=== PATIENT | female | born 1995 | race Two or more races ===

== ENCOUNTER → 2018-06-20 | Outpatient (CLI) | payer OTHER ==
--- NOTE | 2018-06-22 15:29 | CT ---
EXAMINATION TYPE: CT abdomen pelvis wo con DATE OF EXAM: 06/20/2018 COMPARISON: None INDICATION: Renal stone DLP: 660.39 mGycm, Automated exposure control for dose reduction was used. CONTRAST: 0 mL of Isovue 300. Study performed without Oral Contrast TECHNIQUE: Axial images were obtained from above the diaphragm to the pubic rami in the axial plane a t 5 mm thick sections. Reconstructed images are reviewed on the computer in the coronal plane. FINDINGS: Limited CT sections are obtained the lung bases. The lung bases are clear. CT ABDOMEN: Liver: Normal Spleen: Normal Pancreas: Normal Adrenal glands: The adrenal glands are normal. Gallbladder: Normal Kidneys: Kidneys appear to be a horseshoe kidney configuration. No masses are evident. No hydronephro sis is present. No cysts are present. No renal stones are evident. No ureteral stones are evident. No dilated ureters are evident. Aorta: Normal Inferior vena cava: Normal. CT PELVIS: Loops of bowel within the abdomen and pelvis are normal. Are fecal retention is present throughou t the distal colon. Appendix: Not identified Urinary bladder: Normal. Genitourinary structures: Uterus is unremarkable. No free fluid is within the pelvis. Adnexal regions are clear. Osseous structures: No suspicious lytic or sclerotic lesions. IMPRESSIONS: 1. 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 2. No renal or ureteral stones. 3. No hydronephrosis.
== END ==
LOC: RADCTMAIN 19:28
PROVIDERS: ATTEND Internal Medicine
DX: N20.0 Calculus of kidney (principal)
CPT/HCPCS: 74176